=== PATIENT | male | born 1960 | race Caucasian/White ===

== ENCOUNTER → 2019-01-29 | Outpatient (CLI) | payer OTHER ==
[~2019-01-29] MED LIST: APIX5TAB PO; FLEC100T PO; OMNIPAQUE 350 MG/ML, 150 ML BOTTLE ONE
== END | disposition home or self-care (01) ==
LOC: CFH 11:32
PROVIDERS: ATTEND Internal Medicine Cardiovascular Disease
DX: I48.0 Paroxysmal atrial fibrillation (principal)
CPT/HCPCS: 71046; 75572; Q9967

== ENCOUNTER 2019-01-30 06:42 | Observation (INO) | payer OTHER ==
[2019-01-29 11:20] LABS: BASOPHILS # (AUTO) 0.03 x10^3/uL (0-0.1); BASOPHILS % (AUTO) 1 % (0-1); EOSINOPHILS # (AUTO) 0.25 x10^3/uL (0-0.4); EOSINOPHILS % (AUTO) 4 % (1-7); LYMPHOCYTES # (AUTO) 2.04 x10^3/uL (1-3.4); LYMPHOCYTES % (AUTO) 35 % (22-44); MD NO; MEAN CORPUSCULAR HEMOGLOBIN 30.2 pg (27.5-34.5); MEAN CORPUSCULAR VOLUME 91.4 fL (81-97); MONOCYTES # (AUTO) 0.59 x10^3/uL (0.2-0.8); MONOCYTES % (AUTO) 10 % (2-9); NEUTROPHILS # (AUTO) 2.91 x10^3/uL (1.8-6.8); NEUTROPHILS % (AUTO) 50 % (42-75); PLATELET COUNT 303 x10^3/uL (130-400); RED BLOOD COUNT 5.27 x10^6/uL (4.38-5.82); RED CELL DISTRIBUTION WIDTH 13.5 % (9.4-14.8)
[2019-01-29 11:34] LABS: ALBUMIN 3.9 g/dL (3.4-5.0); ANION GAP 6 mmol/L (5-15); CALCIUM 9.1 mg/dL (8.5-10.1); CHLORIDE 107 mmol/L (98-107)
[2019-01-29 11:36] LABS: INTERNATIONAL NORMALIZED RATIO 0.94 (0.93-1.1); PROTHROMBIN TIME 9.9 Seconds (9.6-11.5)
[2019-01-29 11:39] LABS: ALANINE AMINOTRANSFERASE 27 U/L (12-78); ALKALINE PHOSPHATASE 136 U/L (45-117); BILIRUBIN,TOTAL 0.4 mg/dL (0.2-1.0); CREATININE 1.16 mg/dL (0.7-1.3)
[~2019-01-30] VITALS: Ht 180.3 cm; Wt 81.6 kg
[~2019-01-30 06:42] MED LIST changes: -APIX5TAB PO; +LIDOCAINE 1%, 20ML ONE; -OMNIPAQUE 350 MG/ML, 150 ML BOTTLE ONE
[2019-01-30] MEDS ORDERED: SODIUM CHLORIDE 0.9% 1,000 ML IV SCH (06:52)
[2019-01-30 07:34] VITALS: BP 132/89
[2019-01-30] MEDS ORDERED: HEPARIN 1,000 UNITS/ML, 10ML ONE ×2 (07:39)
[2019-01-30] MEDS ORDERED: FENTANYL PF 250 MCG/5ML ONE (07:39)
[2019-01-30] MEDS ORDERED: PROPOFOL 50 ML ONE (07:39)
[2019-01-30] MEDS ORDERED: MIDAZOLAM 1 MG/ML, 2ML ONE (07:39)
[2019-01-30] MEDS ORDERED: DEXAMETHASONE 4 MG/ML, 1ML ONE (10:44)
[2019-01-30] MEDS ORDERED: ONDANSETRON 2MG/ML, 2ML ONE (10:44)
[2019-01-30] MEDS ORDERED: ROCURONIUM 10MG/ML,5ML ONE (10:44)
[2019-01-30] MEDS ORDERED: SUCCINYLCHOLINE 20 MG/ML, 10ML ONE (10:44)
[2019-01-30] MEDS: APIXABAN 5 MG TABLET PO SCH ×2 (10:45→22:03)
[2019-01-30] MEDS ORDERED: APIXABAN 5 MG TABLET ONE (10:46)
[2019-01-30] MEDS ORDERED: DIAZEPAM 5 MG/ML, 2ML IVPush PRN (11:00)
[2019-01-30] MEDS ORDERED: ONDANSETRON 2MG/ML, 2ML IV PRN (11:00)
[2019-01-30] MEDS ORDERED: MORPHINE SULFATE 4 MG/ML, 1ML IVPush PRN (11:00)
[2019-01-30] MEDS ORDERED: ACETAMINOPHEN 325 MG TABLET PO PRN (11:00)
[2019-01-30] MEDS ORDERED: EPHEDRINE 50 MG/ML, 1ML IM PRN (11:00)
[2019-01-30] MEDS ORDERED: ONDANSETRON ODT 8 MG PO PRN (11:00)
[2019-01-30] MEDS ORDERED: DIPHENHYDRAMINE 50 MG/ML, 1ML IVPush PRN (11:00)
[2019-01-30] MEDS ORDERED: FENTANYL PF 100 MCG/2ML IV PRN (11:00)
[2019-01-30] MEDS ORDERED: PROMETHAZINE 25 MG/ML, 1ML IV PRN (11:00)
[2019-01-30] MEDS ORDERED: OXYcodone 5 MG/5 ML ORAL.SOL UDC PO PRN (11:00)
[2019-01-30] MEDS ORDERED: MIDAZOLAM 1 MG/ML, 2ML IV PRN (11:00)
[2019-01-30] MEDS ORDERED: MEPERIDINE/PF 25MG/0.5ML IVPush PRN (11:00)
[2019-01-30 14:03] VITALS: BP 118/85
[2019-01-30 19:15] VITALS: BP 138/88
[2019-01-30] MEDS: FLECAINIDE 100MG TABLET PO SCH (22:03)
[2019-01-31 01:14] VITALS: BP 124/77
[2019-01-31 07:32] VITALS: BP 130/83
[2019-01-31] MEDS: FLECAINIDE 100MG TABLET PO SCH (09:42)
[2019-01-31] MEDS: APIXABAN 5 MG TABLET PO SCH (09:42)
[2019-01-31 14:00] VITALS: BP 120/83
[2019-01-31] MEDS ORDERED: APIX5TAB PO (14:39)
== END 2019-01-31 17:10 | disposition home or self-care (01) ==
LOC: CACL 06:42 → ORIP 10:20 → 5SO 12:44 → DCLOUNGE 01-31 16:25
PROVIDERS: ADMIT Internal Medicine Cardiovascular Disease; ATTEND Internal Medicine Cardiovascular Disease
DX: I48.0 Paroxysmal atrial fibrillation (principal); Z88.0 Allergy status to penicillin
CPT/HCPCS: 36415; 80053; 85025; 85347; 85610; 85730; 93308; 93312; 93321; 93325; 93613; 93656; 93657; 93662; C1730; C1732; C1759; C1766; C1893; C1894; G0378; J0330; J1100; J1644; J2250; J2405; J2704; J3010; J3490

== ENCOUNTER 2019-04-05 09:58 | Inpatient (IN) | payer OTHER ==
[~2019-04-05] VITALS: Ht 180.3 cm; Wt 81.7 kg
[2019-04-06 07:02] VITALS: BP 116/68
== END 2019-04-06 13:25 | disposition home or self-care (01) | DRG 309 ==
LOC: CACL 09:58 → OBSVTOIN 11:37 → ORIP 11:37 → CCU 13:19 → 5SO 17:48
PROVIDERS: ADMIT Internal Medicine Cardiovascular Disease; ATTEND Internal Medicine Cardiovascular Disease
PROC: 5A2204Z Restoration of Cardiac Rhythm, Single (ICD-10-PCS; principal; 2019-04-05)
PROC: 5A12012 Performance of Cardiac Output, Single, Manual (ICD-10-PCS; 2019-04-05)
DX: I48.0 Paroxysmal atrial fibrillation (principal); D68.69 Other thrombophilia; I97.120 Postprocedural cardiac arrest following cardiac surgery; I48.92 Unspecified atrial flutter; Y83.8 Other surgical procedures as the cause of abnormal reaction of the patient, or of later complication, without mention of misadventure at the time of the procedure; Y92.238 Other place in hospital as the place of occurrence of the external cause; E78.2 Mixed hyperlipidemia; Z88.0 Allergy status to penicillin
CPT/HCPCS: 36415; 71045; 80048; 80053; 85025; 87081; 92950; 92960; 93005; 93312; 93321; 93325; G0378; J0171; J1885; J2704; J3010

== ENCOUNTER 2019-04-09 00:48 | Emergency (ER) | payer OTHER ==
[~2019-04-09] VITALS: Ht 180.3 cm; Wt 80.3 kg
[2019-04-09 03:57] VITALS: BP 117/78
== END 2019-04-09 04:01 | disposition home or self-care (01) ==
LOC: ED 03:38
DX: I48.0 Paroxysmal atrial fibrillation (principal); R00.2 Palpitations; F17.200 Nicotine dependence, unspecified, uncomplicated
CPT/HCPCS: 36415; 80048; 82040; 83735; 84484; 85025; 93005; 96374; 99284